=== PATIENT | male | born 1990 | race Caucasian/White ===

== ENCOUNTER 2019-01-28 14:22 | Inpatient (IN) ==
[2019-01-28] MEDS ORDERED: IMODIUM PO PRN (22:40)
[2019-01-28] MEDS ORDERED: TUBERSOL ID ONE (22:40)
[2019-01-28] MEDS ORDERED: DULCOLAX PR PRN (22:40)
[2019-01-28] MEDS ORDERED: PHENOBARBITAL IV PRN (22:40)
[2019-01-28] MEDS ORDERED: TYLENOL PO PRN (22:40)
[2019-01-28] MEDS ORDERED: MOTRIN PO PRN (22:40)
[2019-01-28] MEDS ORDERED: BENTYL PO PRN (22:40)
[2019-01-28] MEDS ORDERED: MAALOX PLUS LIQUID PO PRN (22:40)
[2019-01-28] MEDS ORDERED: ROBAXIN PO PRN (22:40)
[2019-01-28] MEDS ORDERED: ZOFRAN IV PRN (22:40)
[2019-01-28] MEDS ORDERED: SEROQUEL PO PRN (22:40)
[2019-01-28] MEDS ORDERED: ATARAX PO PRN (22:40)
[2019-01-28] MEDS ORDERED: ZOFRAN ODT PO PRN (22:40)
[2019-01-28] MEDS ORDERED: SALINE LOCK IV FLUID XX ONE (22:40)
[2019-01-28] MEDS ORDERED: D5W 1,000 ML IV PRN (22:40)
[2019-01-28] MEDS ORDERED: NICODERM PATCH TD PRN (22:40)
[2019-01-28] MEDS ORDERED: SENOKOT PO PRN (22:40)
[2019-01-28] MEDS ORDERED: LIBRIUM PO SCH (22:45)
[2019-01-28 23:25] LABS: HEMATOCRIT 40.8 % (42.0-52.0); HEMOGLOBIN 13.2 g/dL (14.0-18.0); MCH 29.7 PG (27-31); MCHC 32.4 g/dL (33-37); MCV 91.7 FL (81-99); MPV 9.5 FL (7.4-10.4); RBC 4.45 XMIL (4.7-6.1); RDW 12.7 % (11.5-14.5); WBC 8.05 X1000 (4.8-10.8)
[2019-01-28] MEDS: SINEQUAN PO SCH (23:37)
[2019-01-28 23:39] LABS: INR 0.92; PROTIME 12.8 Seconds (11.0-16.0)
[2019-01-28 23:47] LABS: AGAP 13; ALBUMIN 4.5 g/dL (3.5-5.0); ALKALINE PHOSPHATASE 63 U/L (32-122); AMYLASE 59 U/L (20-200); BUN 11 mg/dL (8-22); CHLORIDE 99 mmol/L (98-107); COSMO 279; CREATININE 0.7 mg/dL (0.7-1.2); ESTIMATED GFR > 60; GLUCOSE 95 mg/dL (70-104); GOT 25 U/L (10-34); GPT 20 U/L (10-44); LIPASE 14 U/L (13-60); POTASSIUM 3.5 mmol/L (3.5-5.1); SODIUM 140 mmol/L (136-145); TCO2 28 mmol/L (25-35); TOTAL PROTEIN 7.3 g/dL (6.3-8.3)
[2019-01-28] MEDS: NEURONTIN PO SCH (23:58)
[2019-01-28] MEDS: LIBRIUM PO SCH (23:59)
[2019-01-29] MEDS: LIBRIUM PO SCH ×4 (05:54→23:17)
[2019-01-29] MEDS: PROTONIX PO SCH (06:06)
[2019-01-29] MEDS ORDERED: M.V.I.-12 10 ML, FOLIC ACID 1 MG, MAGNESIUM SULFATE 1 GM, THIAMINE 100 MG in NS 1,000 ML IV ONE (08:00)
[2019-01-29] MEDS: VITAMIN B-1 PO SCH (11:45)
[2019-01-29] MEDS: THERA M PLUS PO SCH (11:45)
[2019-01-29] MEDS: FOLIC ACID PO SCH (11:45)
[2019-01-29] MEDS: LEXAPRO PO SCH (11:45)
[2019-01-29] MEDS: NEURONTIN PO SCH ×3 (11:45→23:16)
[2019-01-29 13:55] LABS: URINE SOURCE CLEAN CATCH
[2019-01-29 14:02] LABS: BILIRUBIN URINE NEGATIVE (NEGATIVE); BLOOD URINE NEGATIVE (NEGATIVE); COLOR YELLOW; GLUCOSE URINE NEGATIVE (NEGATIVE); KETONE URINE NEGATIVE (NEGATIVE); LEUKOCYTES URINE NEGATIVE (NEGATIVE); NITRITE URINE NEGATIVE (NEGATIVE); PROTEIN URINE TRACE mg/dL (NEGATIVE); SP GRAVITY URINE 1.024; TURBIDITY URINE CLEAR (CLEAR); UROBILINOGEN URINE NORMAL (NORMAL)
[2019-01-29 14:04] LABS: UR EPITHELIAL CELLS <10 /HPF (<10); URINE BACTERIA NEGATIVE /HPF; URINE RBC <10 /HPF (<10); URINE WBC <10 /HPF (<10)
[2019-01-29 14:11] LABS: UR AMPHETAMINES QUAL NONE DETECTED (NONE DETECT); UR BARBITUATES QUAL NONE DETECTED (NONE DETECT); UR BENZODIAZEPIN QUAL PRESUMPTIVE POSITIVE (NONE DETECT); UR CANNABINOIDS QUAL PRESUMPTIVE POSITIVE (NONE DETECT); UR COCAINE QUAL NONE DETECTED (NONE DETECT); UR OPIATES QUAL PRESUMPTIVE POSITIVE (NONE DETECT); UR OXYCODONE QUAL PRESUMPTIVE POSITIVE (NONE DETECT); UR TCA QUAL PRESUMPTIVE POSITIVE (NONE DETECT)
[2019-01-29 14:12] LABS: UR METHADONE QUAL NONE DETECTED (NONE DETECT); UR METHAMPHETAMINE QUAL NONE DETECTED (NONE DETECT); UR PCP QUAL NONE DETECTED (NONE DETECT); UR PROPOXYPHENE QUAL NONE DETECTED (NONE DETECT)
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
[2019-01-30] MEDS: SINEQUAN PO SCH ×2 (01:55→20:53)
[2019-01-30] MEDS: LIBRIUM PO SCH ×4 (05:52→23:11)
[2019-01-30] MEDS: PROTONIX PO SCH ×2 (05:52→07:25)
[2019-01-30] MEDS: FOLIC ACID PO SCH (08:55)
[2019-01-30] MEDS: VITAMIN B-1 PO SCH (08:55)
[2019-01-30] MEDS: THERA M PLUS PO SCH (08:55)
[2019-01-30] MEDS: LEXAPRO PO SCH (08:55)
[2019-01-30] MEDS: NEURONTIN PO SCH ×3 (08:55→17:46)
--- NOTE | 2019-01-30 10:08 | PROGRESS NOTE ---
DATE: 01/30/2019 SUBJECTIVE: Patient notes that he is feeling a lot better today. States that he slept most of the day yesterday. His muscle aches, tremors, and myalgias all are better today. PHYSICAL EXAMINATION: Vital Signs: Reviewed. He is awake and alert. He is in no current respiratory distress. HEENT: Normocephalic, atraumatic. PERRL. Neck: Supple. No JVD. Cardiovascular: Regular rate. No murmurs. Chest: Clear and unlabored. Abdomen: Soft, nondistended, nontender. Extremities: He moves all extremities. Neurologic: No focal changes. Skin: Warm, dry. No rashes. ASSESSMENT: 1. Nausea and vomiting. 2. Abdominal pain. 3. Myalgias. 4. Paresthesias. 5. Paroxysmal sweating. 6. Polysubstance abuse, withdrawal, and stabilization. PLAN: We are going to continue the patient in the hospital. Continue Librium taper. Continue counseling. Further orders as needed. cc: Guzman Wright MD
[2019-01-30] MEDS ORDERED: LIBRIUM PO SCH (23:00)
[2019-01-31] MEDS: LIBRIUM PO SCH ×2 (05:31→12:09)
[2019-01-31] MEDS: PROTONIX PO SCH ×2 (05:31→06:04)
[2019-01-31] MEDS: FOLIC ACID PO SCH (09:17)
[2019-01-31] MEDS: LEXAPRO PO SCH (09:17)
[2019-01-31] MEDS: NEURONTIN PO SCH ×3 (09:17→16:59)
[2019-01-31] MEDS: THERA M PLUS PO SCH (09:18)
[2019-01-31] MEDS: VITAMIN B-1 PO SCH (09:18)
[2019-01-31 16:55] VITALS: BP 130/78
[2019-01-31] MEDS ORDERED: LIBRIUM PO SCH (18:00)
--- NOTE | 2019-01-31 18:51 | PROGRESS NOTE ---
DATE: 01/31/2019 SUBJECTIVE: The patient notes that he is feeling a lot better. Denies any fevers, chills. Denies cough or congestion. Denies any current pain. States withdrawal has been much better than expected. OBJECTIVE: Vital Signs: Reviewed. General: He is awake, alert. He is in no respiratory distress. HEENT: Normocephalic. Neck: Supple. Cardiovascular: Regular rate. Chest: Clear. Abdomen: Soft. Neurologic: Moves all extremities. ASSESSMENT: 1. Nausea and vomiting. 2. Abdominal pain. 3. Tremors. 4. Myalgias. 5. Paresthesias. 6. Paroxysmal sweating. 7. Polysubstance use and abuse. PLAN: We are going to continue to wean patient's Librium, continue to follow. Further orders as needed. Hopefully, he can transition to rehab over the next 2 or 3 days. cc: Guzman Wright MD
--- NOTE | 2019-02-02 18:45 | DISCHARGE SUMMARY ---
ADMISSION DATE: 01/28/2019 DISCHARGE DATE: 01/31/2019 DISCHARGE DIAGNOSES: 1. Patient left against medical advice. 2. Nausea, vomiting. 3. Abdominal pain. 4. Myalgias. 5. Paresthesias. 6. Opiate abuse, withdrawal, and stabilization. CONSULTATIONS: None. PROCEDURES: None. BRIEF HOSPITAL COURSE: Patient is a 28-year-old male who presented to the hospital. Noted that his withdrawal was actually much better than expected. Noted that on the day that he left earlier that he was actually feeling better. He had no new complaints. Therefore, we had no opportunity to persuade him not to leave AMA. DISPOSITION: No discharge disposition was able to be made as patient refused to stay in the hospital and left against advice. cc: Guzman Wright MD
== END 2019-01-31 20:11 | disposition left against medical advice (07) | DRG 894 ==
LOC: P.MEDSURG 21:46
PROVIDERS: ADMIT Family Medicine; ATTEND Family Medicine